=== PATIENT | male | born 1980 | race Caucasian/White ===

== ENCOUNTER 2018-11-21 05:44 | Day surgery (SDC) | payer OTHER ==
[~2018-11-21] VITALS: Ht 175.3 cm; Wt 82.7 kg
[2018-11-21 07:05] VITALS: BP 104/66; PULSE 54; RESP 16; Ht 175.3 cm; Wt 82.7 kg
[2018-11-21] MEDS ORDERED: FENTAnyl 50 MCG/ML VIAL ONE (09:26)
[2018-11-21] MEDS ORDERED: MIDAZOLAM 1 MG/ML 2 ML INJ ONE ×2 (09:26→09:27)
== END 2018-11-21 11:11 | disposition home or self-care (01) ==
LOC: GIL 05:44 → SDS 05:44 → GIL 11:11
PROVIDERS: ATTEND Internal Medicine Gastroenterology
DX: K44.9 Diaphragmatic hernia without obstruction or gangrene (principal); K21.0 Gastro-esophageal reflux disease with esophagitis
CPT/HCPCS: 43239; 88305; J2250; J3010; Z7610